=== PATIENT | male | born 1975 | race Caucasian/White ===

== ENCOUNTER 2019-12-15 13:04 | Emergency (ER) | payer OTHER ==
[~2019-12-15] VITALS: Ht 170.2 cm; Wt 86.2 kg
[2019-12-15 13:22] VITALS: BP_SYST 142
--- NOTE | 2019-12-15 13:22 | NUR ---
Patient to ER bed 2 to gown for evaluation. Side rails up. Report given to RCIKY Joe.
--- NOTE | 2019-12-15 13:50 | NUR ---
patient walked in c/o pain in the umbilicus for x4 days. Had "pimple" on umbilicus x4 weeks. Primary care physician gave patient Mupirocin ointment for treatment, was told to use for 10 days only. After 10 days patient stopped using ointment and at 14th day of having "pimple" he had open wound. Patient came in regarding 8/10 pain at umbilicus which is new. Patient had hernia repair with mesh at umbilicus in 2014. patient denies nausea, vomiting and fever. Patient AAOx4, steady gait. Will continue to monitor.
--- NOTE | 2019-12-15 13:58 | NUR ---
ER at bedside examining patient.
[2019-12-15 14:26] LABS: BASOPHILS % (AUTO) 0.5 % (0.0-2.0); EOSINOPHILS # (AUTO) 0.2 K/uL (0.0-0.4); EOSINOPHILS % (AUTO) 3.1 % (0.0-4.0); HEMATOCRIT 43.4 % (36-54); HEMOGLOBIN 14.5 g/dL (14.0-18.0); LYMPHOCYTES # (AUTO) 1.3 K/uL (1.0-5.5); LYMPHOCYTES % (AUTO) 19.6 % (20.5-51.5); MEAN CORPUSCULAR HEMOGLOBIN 32 pg (27-31); MEAN CORPUSCULAR HGB CONC 33 % (32-36); MEAN CORPUSCULAR VOLUME 95 fL (79.0-98.0); MONOCYTES # (AUTO) 0.6 K/uL (0.0-1.0); NEUTROPHILS # (AUTO) 4.6 K/uL (1.8-7.7); NEUTROPHILS % (AUTO) 67.8 % (40.0-70.0); PLATELET COUNT (AUTO) 306 K/uL (130-430); RED CELL DISTRIBUTION WIDTH 13.2 % (9.0-15.0); WHITE BLOOD COUNT (AUTO) 6.7 K/uL (4.8-10.8)
[2019-12-15 14:32] LABS: BILIRUBIN,URINE NEGATIVE (NEGATIVE); BLOOD, URINE NEGATIVE (NEGATIVE); CLARITY/URINE CLEAR (CLEAR); COLOR,URINE YELLOW (YELLOW); GLUCOSE,URINE NEGATIVE (NEGATIVE); KETONES,URINE NEGATIVE (NEGATIVE); LEUKOCYTE ESTERASE ,URINE NEGATIVE (NEGATIVE); NITRITE, URINE NEGATIVE (NEGATIVE); PROTEIN URINE NEGATIVE (NEGATIVE); UROBILINOGEN,URINE 0.2 (0.2-1.0)
[2019-12-15 14:38] LABS: CALCIUM 9.1 mg/dL (8.4-11.0); CREATININE 0.83 mg/dL (0.55-1.30); POTASSIUM 5.6 mmol/L (3.5-5.1)
[2019-12-15 14:39] LABS: PROTHROMBIN TIME 9.6 SECS (9.5-12.5)
[2019-12-15 14:44] LABS: ALBUMIN 3.5 g/dL (3.4-4.8); TOTAL BILIRUBIN 0.4 mg/dL (0.0-1.0)
--- NOTE | 2019-12-15 14:45 | NUR ---
patient in bed. no s/s of acute distress noted. will continue to monitor.
[2019-12-15] MEDS ORDERED: BACITRACIN 1 GM OINT TP ONE (15:25)
[2019-12-15] MEDS ORDERED: SODIUM POLYSTYRENE SULFONATE 15 GM/60 ML UDBTL PO ONE (15:45)
--- NOTE | 2019-12-15 15:55 | NUR ---
Patient given written and verbal discharge instructions and verbalizes understanding. ER MD discussed with patient the results and treatment provided. Patient in stable condition. ID arm band removed. Rx of augmentin given. Patient educated on pain management and to follow up with PMD. Pain Scale 5/10. Opportunity for questions provided and answered. Medication side effect fact sheet provided.
[2019-12-15 16:13] VITALS: BP_SYST 133
== END 2019-12-15 15:55 | disposition home or self-care (01) ==
LOC: SED 13:04
DX: R10.33 Periumbilical pain (principal)
CPT/HCPCS: 36415; 71045; 80053; 81003; 83605; 83690-TC; 84484; 85025; 85610-TC; 87040-TC; 93005; 99285

== ENCOUNTER 2020-01-31 15:03 | Inpatient (IN) | payer OTHER ==
[~2020-01-31] VITALS: Ht 170.2 cm; Wt 88.9 kg
[2020-01-31 15:12] VITALS: BP_SYST 149
[2020-01-31] MEDS ORDERED: IOHEXOL 100 ML IV ONE (16:02)
[2020-01-31 16:09] LABS: EOSINOPHILS # (AUTO) 0.2 K/uL (0.0-0.4)
[2020-01-31 16:41] LABS: BASOPHILS % (AUTO) 0.5 % (0.0-2.0); EOSINOPHILS % (AUTO) 3.1 % (0.0-4.0); HEMATOCRIT 42.9 % (36-54); HEMOGLOBIN 14.3 g/dL (14.0-18.0); LYMPHOCYTES # (AUTO) 1.3 K/uL (1.0-5.5); LYMPHOCYTES % (AUTO) 24.2 % (20.5-51.5); MEAN CORPUSCULAR HEMOGLOBIN 31 pg (27-31); MEAN CORPUSCULAR HGB CONC 33 % (32-36); MEAN CORPUSCULAR VOLUME 92 fL (79.0-98.0); MONOCYTES # (AUTO) 0.5 K/uL (0.0-1.0); NEUTROPHILS # (AUTO) 3.5 K/uL (1.8-7.7); NEUTROPHILS % (AUTO) 63.2 % (40.0-70.0); PLATELET COUNT (AUTO) 262 K/uL (130-430); RED BLOOD CELL COUNT(AUTO) 4.68 MIL/uL (4.2-6.2); RED CELL DISTRIBUTION WIDTH 13.4 % (9.0-15.0); WHITE BLOOD COUNT (AUTO) 5.5 K/uL (4.8-10.8)
[2020-01-31 16:48] LABS: CALCIUM 8.7 mg/dL (8.4-11.0); CREATININE 0.84 mg/dL (0.55-1.30); POTASSIUM 3.9 mmol/L (3.5-5.1)
[2020-01-31 17:03] LABS: ALBUMIN 3.8 g/dL (3.4-4.8); TOTAL BILIRUBIN 0.4 mg/dL (0.0-1.0)
[2020-01-31 18:46] VITALS: BP_SYST 149
[2020-01-31 19:41] VITALS: BP_SYST 141
[2020-01-31 20:00] VITALS: BP_SYST 141
[2020-01-31] MEDS ORDERED: ONDANSETRON HCL 4 MG/2 ML VIAL IVP PRN (20:15)
[2020-01-31] MEDS ORDERED: MORPHINE 2 MG/ML INJ. SYRINGE IVP PRN (20:15)
[2020-01-31] MEDS ORDERED: ALBUTEROL SULFATE 0.083% 2.5 MG/3 ML VIAL.NEB INH PRN (20:15)
[2020-01-31] MEDS ORDERED: PIPERACILLIN/TAZOBACTAM 3.375 GM/VIAL (ZOSYN) IV ONE (21:43)
[2020-01-31] MEDS ORDERED: metroNIDAZOLE 500 mg/NS 200 ML IV ONE (21:43)
[2020-01-31] MEDS: PIPERACILLIN/TAZO 3.375/DEX-IS 50 ML IV SCH (21:44)
[2020-01-31] MEDS: NACL 0.9% 1,000 ML IV SCH (21:44)
[2020-01-31 22:00] VITALS: BP_SYST 109
[2020-01-31] MEDS: metroNIDAZOLE 500 mg/NS 100 ML IV SCH (22:47)
[2020-01-31 23:43] VITALS: BP_SYST 109
[2020-02-01] MEDS: PIPERACILLIN/TAZO 3.375/DEX-IS 50 ML IV SCH ×3 (02:38→16:17)
[2020-02-01] MEDS: metroNIDAZOLE 500 mg/NS 100 ML IV SCH ×2 (05:03→13:52)
[2020-02-01] MEDS: NACL 0.9% 1,000 ML IV SCH ×2 (05:04→16:18)
[2020-02-01 07:05] LABS: BASOPHILS % (AUTO) 0.9 % (0.0-2.0); EOSINOPHILS # (AUTO) 0.2 K/uL (0.0-0.4); EOSINOPHILS % (AUTO) 3.9 % (0.0-4.0); HEMATOCRIT 44.9 % (36-54); HEMOGLOBIN 14.8 g/dL (14.0-18.0); LYMPHOCYTES # (AUTO) 1.2 K/uL (1.0-5.5); LYMPHOCYTES % (AUTO) 22.1 % (20.5-51.5); MEAN CORPUSCULAR HEMOGLOBIN 31 pg (27-31); MEAN CORPUSCULAR HGB CONC 33 % (32-36); MEAN CORPUSCULAR VOLUME 93 fL (79.0-98.0); MONOCYTES # (AUTO) 0.5 K/uL (0.0-1.0); MONOCYTES % (AUTO) 8.5 % (1.7-9.3); NEUTROPHILS # (AUTO) 3.5 K/uL (1.8-7.7); NEUTROPHILS % (AUTO) 64.6 % (40.0-70.0); PLATELET COUNT (AUTO) 259 K/uL (130-430); RED BLOOD CELL COUNT(AUTO) 4.82 MIL/uL (4.2-6.2); RED CELL DISTRIBUTION WIDTH 13.6 % (9.0-15.0); WHITE BLOOD COUNT (AUTO) 5.4 K/uL (4.8-10.8)
[2020-02-01 07:51] LABS: ALBUMIN 3.4 g/dL (3.4-4.8); CALCIUM 8.5 mg/dL (8.4-11.0); CREATININE 0.92 mg/dL (0.55-1.30); POTASSIUM 4.4 mmol/L (3.5-5.1); TOTAL BILIRUBIN 0.7 mg/dL (0.0-1.0)
[2020-02-01 08:00] VITALS: BP_SYST 119
[2020-02-01 12:30] VITALS: BP_SYST 117
[2020-02-01 16:22] VITALS: BP_SYST 117
[2020-02-01 20:00] VITALS: BP_SYST 120
[2020-02-01] MEDS: DOXYCYCLINE HYCLATE 100 MG in D5W 100 ML IV SCH (20:50)
[2020-02-01] MEDS: ceFAZolin SODIUM 1 GM in D5W 50 ML IV SCH (22:08)
[2020-02-02 00:11] VITALS: BP_SYST 107
[2020-02-02] MEDS: NACL 0.9% 1,000 ML IV SCH ×4 (03:45→23:25)
[2020-02-02] MEDS: ceFAZolin SODIUM 1 GM in D5W 50 ML IV SCH ×3 (05:47→23:25)
[2020-02-02 08:00] VITALS: BP_SYST 136
[2020-02-02] MEDS: DOXYCYCLINE HYCLATE 100 MG in D5W 100 ML IV SCH ×2 (08:43→20:14)
[2020-02-02 12:30] VITALS: BP_SYST 137
[2020-02-02 16:31] VITALS: BP_SYST 126
[2020-02-03 00:26] VITALS: BP_SYST 122
[2020-02-03] MEDS: NACL 0.9% 1,000 ML IV SCH ×3 (04:12→20:15)
[2020-02-03] MEDS: ceFAZolin SODIUM 1 GM in D5W 50 ML IV SCH ×3 (05:10→22:10)
[2020-02-03 07:34] VITALS: BP_SYST 136
[2020-02-03 08:10] LABS: BASOPHILS % (AUTO) 0.6 % (0.0-2.0); EOSINOPHILS # (AUTO) 0.2 K/uL (0.0-0.4); EOSINOPHILS % (AUTO) 4.3 % (0.0-4.0); HEMATOCRIT 45.5 % (36-54); HEMOGLOBIN 14.8 g/dL (14.0-18.0); LYMPHOCYTES # (AUTO) 1.2 K/uL (1.0-5.5); LYMPHOCYTES % (AUTO) 24.4 % (20.5-51.5); MEAN CORPUSCULAR HEMOGLOBIN 30 pg (27-31); MEAN CORPUSCULAR HGB CONC 33 % (32-36); MEAN CORPUSCULAR VOLUME 93 fL (79.0-98.0); MONOCYTES # (AUTO) 0.5 K/uL (0.0-1.0); MONOCYTES % (AUTO) 9.6 % (1.7-9.3); NEUTROPHILS % (AUTO) 61.1 % (40.0-70.0); PLATELET COUNT (AUTO) 262 K/uL (130-430); RED BLOOD CELL COUNT(AUTO) 4.89 MIL/uL (4.2-6.2); RED CELL DISTRIBUTION WIDTH 13.2 % (9.0-15.0); WHITE BLOOD COUNT (AUTO) 4.8 K/uL (4.8-10.8)
[2020-02-03 08:18] LABS: ANION GAP 4 (5-15); C-REACTIVE PROTEIN QUANT < 0.2 mg/dL (0-0.5); CALCIUM 8.4 mg/dL (8.4-11.0); CHLORIDE 101 mmol/L (98-107); CREATININE 0.83 mg/dL (0.55-1.30); GLUCOSE 90 mg/dL (70-99); SODIUM SERUM 134 mmol/L (136-145); UREA NITROGEN, BLOOD 10 mg/dL (8-21)
[2020-02-03 08:24] LABS: GFR AFRICAN AMERICAN 128 mL/min (>90)
[2020-02-03] MEDS: DOXYCYCLINE HYCLATE 100 MG in D5W 100 ML IV SCH ×2 (08:31→20:15)
[2020-02-03 09:09] LABS: ERYTHROCYTE SEDIMENTATION RATE 10 MM/HR (0-15)
[2020-02-03 12:38] VITALS: BP_SYST 132
[2020-02-03 16:43] VITALS: BP_SYST 132
[2020-02-03 19:20] VITALS: BP_SYST 142
[2020-02-04 00:08] VITALS: BP_SYST 120
[2020-02-04] MEDS: NACL 0.9% 1,000 ML IV SCH ×4 (03:42→18:33)
[2020-02-04] MEDS: ceFAZolin SODIUM 1 GM in D5W 50 ML IV SCH ×3 (05:11→23:49)
[2020-02-04 07:00] LABS: BASOPHILS % (AUTO) 0.8 % (0.0-2.0); EOSINOPHILS # (AUTO) 0.2 K/uL (0.0-0.4); EOSINOPHILS % (AUTO) 4.6 % (0.0-4.0); HEMATOCRIT 45.4 % (36-54); LYMPHOCYTES # (AUTO) 1.3 K/uL (1.0-5.5); LYMPHOCYTES % (AUTO) 26.7 % (20.5-51.5); MEAN CORPUSCULAR HEMOGLOBIN 31 pg (27-31); MEAN CORPUSCULAR HGB CONC 33 % (32-36); MEAN CORPUSCULAR VOLUME 93 fL (79.0-98.0); MONOCYTES # (AUTO) 0.5 K/uL (0.0-1.0); MONOCYTES % (AUTO) 9.2 % (1.7-9.3); NEUTROPHILS # (AUTO) 2.9 K/uL (1.8-7.7); NEUTROPHILS % (AUTO) 58.7 % (40.0-70.0); PLATELET COUNT (AUTO) 275 K/uL (130-430); RED CELL DISTRIBUTION WIDTH 13.2 % (9.0-15.0)
[2020-02-04 07:10] LABS: C-REACTIVE PROTEIN QUANT 0.3 mg/dL (0-0.5); CREATININE 0.99 mg/dL (0.55-1.30); POTASSIUM 3.7 mmol/L (3.5-5.1)
[2020-02-04 07:51] LABS: ERYTHROCYTE SEDIMENTATION RATE 12 MM/HR (0-15)
[2020-02-04 08:20] VITALS: BP_SYST 133
[2020-02-04 08:55] LABS: PROTHROMBIN TIME 10.1 SECS (9.5-12.5)
[2020-02-04] MEDS: DOXYCYCLINE HYCLATE 100 MG in D5W 100 ML IV SCH ×2 (09:15→21:45)
[2020-02-04 12:00] VITALS: BP_SYST 122
[2020-02-04] MEDS ORDERED: ONDANSETRON HCL 4 MG/2 ML VIAL IVP PRN ×2 (16:00→17:15)
[2020-02-04] MEDS ORDERED: fentaNYL CITRATE/PF 100 MCG/2 ML AMP IVP PRN ×2 (16:00)
[2020-02-04] MEDS ORDERED: BUPIVACAINE LIPOSOME/PF 266 MG/20 ML VIAL INFIL ONE (16:39)
[2020-02-04] MEDS ORDERED: KETOROLAC TROMETHAMINE 15 MG VIAL IVP PRN (17:15)
[2020-02-04] MEDS ORDERED: HYDROcodone/ACETAMIN 5-325 MG TAB (NORCO/ VICODIN) PO PRN (17:15)
[2020-02-04] MEDS ORDERED: ACETAMINOPHEN 325 MG TABLET PO PRN (17:15)
[2020-02-04] MEDS ORDERED: CEFAZOLIN 2 GM IVPB PREMIX 50 ML IV SCH (17:15)
[2020-02-04] MEDS ORDERED: CEFAZOLIN 1 GM IVPB PREMIX 50 ML IV SCH (17:15)
[2020-02-04] MEDS ORDERED: KETOROLAC TROMETHAMINE 30 MG VIAL ONE (17:36)
[2020-02-04] MEDS ORDERED: fentaNYL CITRATE/PF 100 MCG/2 ML AMP ONE (17:37)
[2020-02-04] MEDS ORDERED: KETOROLAC TROMETHAMINE 30 MG VIAL IVP PRN (17:45)
[2020-02-04] MEDS ORDERED: HYDROmorphone 1 MG INJ. 1 MG/ML AMPUL IVP ONE (18:00)
[2020-02-04] MEDS ORDERED: HYDROmorphone 1 MG INJ. 1 MG/ML AMPUL ONE (18:11)
[2020-02-04] MEDS: HYDROmorphone 1 MG INJ. 1 MG/ML AMPUL IVP PRN ×2 (18:26→21:46)
[2020-02-04] MEDS: metroNIDAZOLE 500 mg/NS 100 ML IV SCH (18:43)
[2020-02-04 20:00] VITALS: BP_SYST 139
[2020-02-05 00:15] VITALS: BP_SYST 140
[2020-02-05] MEDS: metroNIDAZOLE 500 mg/NS 100 ML IV SCH (02:14)
[2020-02-05] MEDS: HYDROmorphone 1 MG INJ. 1 MG/ML AMPUL IVP PRN ×6 (02:15→22:32)
[2020-02-05] MEDS: ceFAZolin SODIUM 1 GM in D5W 50 ML IV SCH ×3 (06:12→22:30)
[2020-02-05] MEDS: NACL 0.9% 1,000 ML IV SCH ×3 (06:14→22:29)
[2020-02-05 06:37] LABS: ALBUMIN 3.4 g/dL (3.4-4.8); CALCIUM 8.2 mg/dL (8.4-11.0); CREATININE 0.84 mg/dL (0.55-1.30); POTASSIUM 3.9 mmol/L (3.5-5.1); TOTAL BILIRUBIN 0.6 mg/dL (0.0-1.0)
[2020-02-05 06:51] LABS: BASOPHILS % (AUTO) 0.4 % (0.0-2.0); EOSINOPHILS # (AUTO) 0.1 K/uL (0.0-0.4); EOSINOPHILS % (AUTO) 1.3 % (0.0-4.0); HEMATOCRIT 45.4 % (36-54); LYMPHOCYTES % (AUTO) 12.3 % (20.5-51.5); MEAN CORPUSCULAR HEMOGLOBIN 31 pg (27-31); MEAN CORPUSCULAR HGB CONC 33 % (32-36); MEAN CORPUSCULAR VOLUME 92 fL (79.0-98.0); MONOCYTES # (AUTO) 0.7 K/uL (0.0-1.0); MONOCYTES % (AUTO) 8.6 % (1.7-9.3); NEUTROPHILS % (AUTO) 77.4 % (40.0-70.0); PLATELET COUNT (AUTO) 265 K/uL (130-430); RED BLOOD CELL COUNT(AUTO) 4.91 MIL/uL (4.2-6.2); RED CELL DISTRIBUTION WIDTH 13.5 % (9.0-15.0)
[2020-02-05 07:32] LABS: WHITE BLOOD COUNT (AUTO) 7.8 K/uL (4.8-10.8)
[2020-02-05 08:00] VITALS: BP_SYST 148
[2020-02-05] MEDS: DOXYCYCLINE HYCLATE 100 MG in D5W 100 ML IV SCH ×2 (08:47→21:03)
[2020-02-05 12:00] VITALS: BP_SYST 160
[2020-02-05 16:09] VITALS: BP_SYST 138
[2020-02-05 20:00] VITALS: BP_SYST 142
[2020-02-06 00:08] VITALS: BP_SYST 152
[2020-02-06] MEDS: HYDROmorphone 1 MG INJ. 1 MG/ML AMPUL IVP PRN (01:22)
[2020-02-06] MEDS: ceFAZolin SODIUM 1 GM in D5W 50 ML IV SCH (06:18)
[2020-02-06 08:00] VITALS: BP_SYST 133
[2020-02-06] MEDS ORDERED: CEPH-568 PO (08:21)
[2020-02-06] MEDS ORDERED: DOXY100T2 PO (08:21)
[2020-02-06] MEDS: NACL 0.9% 1,000 ML IV SCH (09:11)
[2020-02-06] MEDS: DOXYCYCLINE HYCLATE 100 MG in D5W 100 ML IV SCH (09:21)
[2020-02-06 11:06] VITALS: BP_SYST 133
[2020-02-06 12:19] VITALS: BP_SYST 143
== END 2020-02-06 12:35 | disposition home or self-care (01) | DRG 908 ==
LOC: SED 15:03 → SMU 18:27
PROVIDERS: ADMIT Internal Medicine Hospice and Palliative Medicine; ATTEND Internal Medicine Hospice and Palliative Medicine
PROC: 0WUF0KZ Supplement Abdominal Wall with Nonautologous Tissue Substitute, Open Approach (ICD-10-PCS; 2020-02-04)
PROC: 0WPF0JZ Removal of Synthetic Substitute from Abdominal Wall, Open Approach (ICD-10-PCS; principal; 2020-02-04 13:00)
DX: T85.79XA Infection and inflammatory reaction due to other internal prosthetic devices, implants and grafts, initial encounter (principal); L03.311 Cellulitis of abdominal wall; L02.211 Cutaneous abscess of abdominal wall; T81.43XA Infection following a procedure, organ and space surgical site, initial encounter; Y83.8 Other surgical procedures as the cause of abnormal reaction of the patient, or of later complication, without mention of misadventure at the time of the procedure; B95.0 Streptococcus, group A, as the cause of diseases classified elsewhere; B95.61 Methicillin susceptible Staphylococcus aureus infection as the cause of diseases classified elsewhere; Y92.89 Other specified places as the place of occurrence of the external cause; Z98.52 Vasectomy status
CPT/HCPCS: 36415; 80048; 80053; 83605; 83690-TC; 85025; 85610-TC; 85651-TC; 86140; 87040-TC; 87070-TC; 87081; 87186-TC; 88302; 99285; C9290; J0690; J1170; J1885; J2270; J2543; J3010; J3490; J7030; J7060; Q4118; Q9967

== ENCOUNTER 2022-10-06 17:52 | Emergency (ER) | payer OTHER ==
[~2022-10-06] VITALS: Ht 170.2 cm; Wt 95.3 kg
[~2022-10-06 17:52] MED LIST: CEPH-568 PO; DOXY100T2 PO
[2022-10-06 17:55] VITALS: BP_SYST 152
--- NOTE | 2022-10-06 18:05 | NUR ---
Patient triaged and placed in waiting room. VSS and patient appears in no acute distress at this time. Accompanied by SELF, awaiting available bed, and MD notified of need for MSE.
--- NOTE | 2022-10-06 18:10 | NUR ---
PT STATES THAT HE HAS HAD MULTIPLE DOPPLERS ON LEFT LOWER EXTREMITY, NOW WITH REDNESS, PAIN AND SKIN HOT TO TOUCH. ++SWELLING.
--- NOTE | 2022-10-06 18:17 | NUR ---
BROUGHT BACK TO BED #3, REPORT GIVEN TO GAB
--- NOTE | 2022-10-06 18:27 | NUR ---
PATIENT AMBULATORY TO ER C/O LEFT LEG SWOLLEN AND REDNESS STARTED BEFORE YESTERDAY AND GOT WORSE. PLACE IN ROOM 3 AWAITING FOR EDP FOR INITIAL ASSESSMENT.
[2022-10-06 18:52] LABS: BASOPHILS % (AUTO) 0.7 % (0.0-2.0); EOSINOPHILS # (AUTO) 0.2 K/uL (0.0-0.4); HEMATOCRIT 43.1 % (36-54); HEMOGLOBIN 14.5 g/dL (14.0-18.0); LYMPHOCYTES # (AUTO) 1.3 K/uL (1.0-5.5); LYMPHOCYTES % (AUTO) 29.8 % (20.5-51.5); MEAN CORPUSCULAR HEMOGLOBIN 31 pg (27-31); MEAN CORPUSCULAR HGB CONC 34 % (32-36); MEAN CORPUSCULAR VOLUME 92 fL (79.0-98.0); MONOCYTES # (AUTO) 0.7 K/uL (0.0-1.0); MONOCYTES % (AUTO) 16.3 % (1.7-9.3); NEUTROPHILS # (AUTO) 2.2 K/uL (1.8-7.7); NEUTROPHILS % (AUTO) 49.2 % (40.0-70.0); PLATELET COUNT (AUTO) 219 K/uL (130-430); RED BLOOD CELL COUNT(AUTO) 4.71 MIL/uL (4.2-6.2); RED CELL DISTRIBUTION WIDTH 14.2 % (9.0-15.0); WHITE BLOOD COUNT (AUTO) 4.5 K/uL (4.8-10.8)
[2022-10-06 19:11] LABS: CALCIUM 9.1 mg/dL (8.4-11.0); CREATININE 0.86 mg/dL (0.55-1.30)
[2022-10-06 19:16] LABS: ALBUMIN 3.8 g/dL (3.4-4.8); C-REACTIVE PROTEIN QUANT 2.6 mg/dL (0-0.5); TOTAL BILIRUBIN 0.3 mg/dL (0.0-1.0)
[2022-10-06] MEDS ORDERED: CLIN-142 PO (20:38)
[2022-10-06] MEDS ORDERED: CLINDAMYCIN 600 MG in D5W 50 ML IV ONE (20:45)
[2022-10-06 21:32] VITALS: BP_SYST 132
--- NOTE | 2022-10-06 21:33 | NUR ---
Patient given written and verbal discharge instructions and verbalizes understanding. ER MD discussed with patient the results and treatment provided. Patient in stable condition. ID arm band removed. IV catheter removed intact and dressing applied, no active bleeding. Rx of CLINDAMYCIN, KEFLEX given. Patient educated on pain management and to follow up with PMD. Pain Scale . Opportunity for questions provided and answered. Medication side effect fact sheet provided.
== END 2022-10-06 21:32 | disposition home or self-care (01) ==
LOC: SED 17:52
DX: L03.116 Cellulitis of left lower limb (principal); R22.42 Localized swelling, mass and lump, left lower limb; Z79.899 Other long term (current) drug therapy
CPT/HCPCS: 99284; 96365; 80053; 85025; 86140; 36415; 83605; J3490; J7060